=== PATIENT | male | born 1975 | race Hispanic/Latino ===

== ENCOUNTER 2018-12-04 10:40 | Emergency (ER) | payer OTHER ==
[~2018-12-04] VITALS: Ht 175.3 cm; Wt 86.8 kg
[2018-12-04] MEDS ORDERED: NS 1,000 ML IV ONE (11:30)
[2018-12-04] MEDS ORDERED: OMEP40CA97 PO (11:41)
[2018-12-04] MEDS ORDERED: FOLI400T PO (11:41)
[2018-12-04 11:49] LABS: BASO % 0.4 % (0.0-1.0); EOS % 0.4 % (0.0-3.0); HEMATOCRIT 42.1 % (42.0-52.0); HEMOGLOBIN 13.1 g/dl (13.5-17.5); LYMPH # 1.1 10^3/uL (1.5-4.5); LYMPH % 11.2 % (24.0-44.0); MEAN CORPUSCULAR HEMOGLOBIN 25.2 pg (27.0-33.0); MEAN CORPUSCULAR HGB CONC 31.1 g/dl (32.0-36.5); MEAN CORPUSCULAR VOLUME 81.1 fl (80.0-96.0); MONO # 0.8 10^3/uL (0.0-0.8); NEUTROPHILS # 7.7 10^3/uL (1.8-7.7); NEUTROPHILS % 79.7 % (36.0-66.0); PLATELET COUNT, AUTOMATED 225 10^3/uL (150-450); RED BLOOD COUNT 5.19 10^6/uL (4.30-6.10); WHITE BLOOD COUNT 9.6 10^3/uL (4.0-10.0)
[2018-12-04] MEDS ORDERED: methylPREDNISolone INJ 125 MG/2 ML VIAL (J2930) IV ONE (12:15)
[2018-12-04 12:21] LABS: ALBUMIN 3.9 GM/DL (3.2-5.2); ALT/SGPT 24 U/L (12-78); BILIRUBIN,DIRECT 0.2 MG/DL (0.0-0.2); BILIRUBIN,TOTAL 0.8 MG/DL (0.2-1.0); BLOOD UREA NITROGEN 12 MG/DL (7-18); CALCIUM LEVEL 9.3 MG/DL (8.5-10.1); CARBON DIOXIDE LEVEL 30 MEQ/L (21-32); CHLORIDE LEVEL 106 MEQ/L (98-107); CREATININE FOR GFR 0.89 MG/DL (0.70-1.30); GLOMERULAR FILTRATION RATE > 60.0 (>60); GLUCOSE, FASTING 100 MG/DL (70-100); LIPASE 107 U/L (73-393); POTASSIUM SERUM 4.2 MEQ/L (3.5-5.1); SODIUM LEVEL 140 MEQ/L (136-145); TOTAL PROTEIN 7.6 GM/DL (6.4-8.2)
[2018-12-04] MEDS ORDERED: ONDANSETRON 4MG/2ML VIAL (J2405) IV ONE (12:30)
[2018-12-04] MEDS ORDERED: PRED20TA PO (13:06)
[2018-12-04] MEDS ORDERED: ONDA4TAB6 PO (13:06)
[2018-12-04] MEDS ORDERED: SIME180C PO (13:08)
[2018-12-04 13:24] VITALS: BP 114/74
--- NOTE | 2018-12-04 13:27 | REP ---
REASON: Abdominal pain. History of Crohn's disease. The accompanying frontal view of the chest is normal. Multiple gas filled mildly dilated small bowel loops in the abdomen without air fluid levels. There is no free intraperitoneal air. The organ silhouettes insofar as delineated are within normal limits. Surgical staple line is seen on the right. IMPRESSION: Suspect mild ileus. Electronically Signed by Talha Galeana DO 12/04/2018 03:43 P
== END 2018-12-04 13:27 | disposition home or self-care (01) ==
LOC: M ED 10:40
DX: K50.00 Crohn's disease of small intestine without complications (principal); K56.7 Ileus, unspecified; Z79.899 Other long term (current) drug therapy
CPT/HCPCS: 74021; 80048; 80076; 83605; 83690; 85025; 96374; 96375; 99284; J2405; J2930

== ENCOUNTER → 2020-01-12 | Outpatient (CLI) | payer OTHER ==
[~2020-01-12] MED LIST: FOLI400T PO; OMEP40CA97 PO; ONDA4TAB6 PO; PRED20TA PO; SIME180C PO
--- NOTE | 2020-01-19 15:39 | REP ---
ABDOMINAL RADIOGRAPHS CLINICAL: History of fistulizing Crohn's disease. TECHNIQUE: Two supine views of the abdomen and pelvis. FINDINGS: Surgical suture material identified in the right mid-abdomen. The bowel gas pattern is nonspecific and without obstruction or obvious perforation. No organomegaly. No abnormal calcifications, Skeletal structures are intact. Phlebolith noted in the pelvis. IMPRESSION: No evidence for bowel obstruction or obvious perforation. MTDD
== END ==
LOC: M RAD 08:37
PROVIDERS: ATTEND Surgery
DX: K50.918 Crohn's disease, unspecified, with other complication (principal)

== ENCOUNTER → 2020-01-29 | Outpatient (REF) | payer OTHER | LOC: M LAB REF 12:48 | PROVIDERS: ATTEND Surgery | DX: Z01.818 Encounter for other preprocedural examination (principal); Z11.59 Encounter for screening for other viral diseases ==